=== PATIENT | male | born 1935 | race Caucasian/White ===

== ENCOUNTER 2016-08-20 13:09 | Emergency (ER) | payer OTHER ==
[~2016-08-20] VITALS: Ht 185.4 cm; Wt 72.0 kg
[2016-08-20 13:12] VITALS: BP 120/71; PULSE 73; RESP 20; TEMP 97.4; O2SAT 95
[2016-08-20] MEDS ORDERED: DOXA1TAB36 PO (13:23)
[2016-08-20] MEDS ORDERED: PRAV40TA2 PO (13:23)
[2016-08-20] MEDS ORDERED: LISI-519 PO (13:23)
[2016-08-20] MEDS ORDERED: DOXA1TAB34 PO (13:23)
--- NOTE | 2016-08-20 13:33 | PD ---
HPI Chief Complaint: Injury Time Seen by Provider: 13:19 Travel History International Travel<30 days: No Contact w/Intl Traveler<30days: No Traveled to known affect area: No History of Present Illness HPI 81-year-old male presents emergency department for evaluation of left rib pain after a fall. Patient reports 4 days ago while walking on wet concrete he slipped and fell onto his left side injuring his left rib area. He denies head injury. No loss of consciousness. Patient is not anticoagulated. He reports the only injury sustained in the fall was the left rib area. He denies chest pain, shortness of breath, abdominal pain, back pain, headache, change in vision , numbness or tingling in his lower extremities. Patient is well-appearing. Ambulating without difficulty. No visible signs of trauma. [facility] Past Medical History Narrative Medical Significant for hypertension and hyperlipidemia( High Cholesterol: Yes Hypertension: Yes Social History Alcohol Use: No Tobacco Use: No Allergies-Medications (Allergen,Severity, Reaction): Coded Allergies: No Known Allergies (Verified , 08/20/16) Reported Meds & Prescriptions Reported Meds & Active Scripts Active Reported Doxazosin (Doxazosin Mesylate) 1 Mg Tab 1 Mg PO DAILY Pravastatin 40 Mg Tab 40 Mg PO HS Lisinopril 5 Mg Tab 5 Mg PO HS Review of Systems Except as stated in HPI: all other systems reviewed are Neg Physical Exam Narrative GENERAL: Alert, well-appearing male. Patient appears comfortable. in no acute distress SKIN: Focused skin assessment warm/dry. No areas of ecchymosis. No hematomas or abrasions. HEAD: Atraumatic. Normocephalic. EYES: Pupils equal and round. No scleral icterus. No injection or drainage. ENT: No nasal bleeding or discharge. Mucous membranes pink and moist. NECK: Trachea midline. No JVD. No cervical spine tenderness. CARDIOVASCULAR: Regular rate and rhythm. No murmur appreciated. RESPIRATORY: No accessory muscle use. Clear to auscultation. Breath sounds equal bilaterally. Left sided posterior rib tenderness without crepitus or palpable fracture. GASTROINTESTINAL: Abdomen soft, non-tender, nondistended. Hepatic and splenic margins not palpable. MUSCULOSKELETAL: No obvious deformities. No clubbing. No cyanosis. No edema. Hips are nontender. Pelvis stable nontender. No bony point tenderness other than the left ribs. BACK: No midline spine tenderness. NEUROLOGICAL: Awake and alert. No obvious cranial nerve deficits. Motor grossly within normal limits. Normal speech. PSYCHIATRIC: Appropriate mood and affect; insight and judgment normal. Data Data Last Documented VS Vital Signs Date Time Temp Pulse Resp B/P Pulse Ox O2 Delivery O2 Flow Rate FiO2 08/20/16 13:12 97.4 73 20 120/71 95 Orders Ribs, Uni (W/Exp Cxr-Min 3vw) (08/20/16 ) [facility] Medical Decision Making Medical Screen Exam Complete: Yes Emergency Medical Condition: Yes Medical Record Reviewed: Yes Differential Diagnosis Rib fracture, pneumothorax, rib contusion Narrative Course Well-appearing 81-year-old male presents for evaluation of left rib pain after sustaining a mechanical fall 4 days ago. He reports he fell from a standing position after slipping on wet concrete onto his left side. He denies head injury. No loss of consciousness. Patient is not anticoagulated. He reports the only pain he is experiencing is in the left rib area. On exam patient has no physical signs of trauma. No bony point tenderness other than the left posterior rib region. There is no palpable fracture or crepitus. X-rays pending Chest x-ray: Multiple minimally displaced left-sided rib fractures ribs 4 through 8. No pneumothorax. Discussed in detail with patient her use incentive spirometer. Need for follow- up with his doctor for recheck. He agrees to return if he develops fever, chills, shortness of breath. Diagnosis Primary Impression: Multiple rib fractures Qualified Code: S22.42XA - Closed fracture of multiple ribs of left side, initial encounter Referrals: Primary Care Physician Patient Instructions: General Instructions, Rib Fracture (ED) Additional Instructions: Make an appointment for follow-up with her doctor. Uses incentive spirometer as directed. Return to the emergency department if he develops fever, chills, shortness of breath. Scripts Hydrocodone-Acetaminophen ([place])5-325 mg Tab1 Tab PO Q6H PRN (PAIN) #12 TAB Ref 0 Prov:Sheila Khalil 08/20/16 Disposition: 01 DISCHARGE HOME Condition: Stable Sheila Khalil Aug 20, 2016 13:33
--- NOTE | 2016-08-20 14:39 | RADHPO ---
EXAM DATE/TIME: 08/20/2016 13:48 [facility] COMPARISON: No previous studies available for comparison. INDICATIONS : Fell 3 days ago, left posterior chest pain MEDICAL HISTORY : None. SURGICAL HISTORY : None. ENCOUNTER: Initial ACUITY: 3 days PAIN SCORE: 8/10 LOCATION: Left posterior lower chest FINDINGS: Minimally displaced fourth, fifth, sixth, seventh, and eighth lateral rib fractures. No evidence of p neumothorax. Mild bibasilar pulmonary opacity likely representing atelectasis. CONCLUSION: Multiple acute left-sided rib fractures. Jacques Mathis MD on August 20, 2016 at 14:35 Board Certified Radiologist. This report was verified electronically.
[2016-08-20] MEDS ORDERED: NORC5TAB PO (14:55)
--- NOTE | 2016-08-20 14:57 | PD ---
Data Data Last Documented VS Vital Signs Date Time Temp Pulse Resp B/P Pulse Ox O2 Delivery O2 Flow Rate FiO2 08/20/16 13:12 97.4 73 20 120/71 95 Orders Ribs, Uni (W/Exp Cxr-Min 3vw) (08/20/16 ) MDM Supervised Visit with DIDIER: Yes Narrative Course I, Dr. Panchal, have reviewed the advance practice practitioner's documentation and am in agreement, met with the patient face to face, made the diagnosis, and the medical decision making was done by me. *My assessment and Findings: Patient 81-year-old male appears younger than stated age in absolutely no distress presents emergency department with his 2 neighbors for evaluation of left-sided rib pain. Patient states his pain is been fairly well controlled with Aleve but still having some pain. X-ray reveals no pneumothorax the patient has 5 sequential rib fractures posterior lateral on the left side not including rib 1 or 2. These are minimally displaced. Patient's pain is well controlled and he is in no respiratory distress. He would like to go home. Discussed with him need for incentive spirometry and pain control and return to ED criteria. He will follow-up with his primary care physician by phone tomorrow. Diagnosis Primary Impression: Multiple rib fractures Scripts Hydrocodone-Acetaminophen ([place])5-325 mg Tab1 Tab PO Q6H PRN (PAIN) #12 TAB Ref 0 Prov:Sheila Khalil 08/20/16 Disposition: 01 DISCHARGE HOME Condition: Stable Chino Panchal MD Aug 20, 2016 14:57
== END 2016-08-20 15:03 | disposition home or self-care (01) ==
LOC: PHEFT 13:09
DX: S22.42XA Multiple fractures of ribs, left side, initial encounter for closed fracture (principal); I10 Essential (primary) hypertension; E78.5 Hyperlipidemia, unspecified; W01.0XXA Fall on same level from slipping, tripping and stumbling without subsequent striking against object, initial encounter
CPT/HCPCS: 71101; 94150; 99283